=== PATIENT | female | born 1935 | race Caucasian/White ===

== ENCOUNTER 2017-07-14 01:36 | Inpatient (IN) | payer OTHER, MEDICARE ==
[~2017-07-14] VITALS: Ht 167.6 cm; Wt 90.7 kg
[~2017-07-14 01:36] MED LIST: AMLODIPINE BESY10 M1 PO; ASPIRIN81 M4 PO; ATENOLOL100 M1 PO; ATIVAN1 M1 PO; BENAZEPRIL HCL40 MG PO; CITALOPRAM HBR40 MG PO; COUMADIN5 M2 PO; DOCUSATE SODIU100 M3 PO; FOLIC ACID0.8 M2 PO; K-TAB ER20 MEQ PO; LEVOTHYROXINE25 MCG PO; LOVASTATIN10 M1 PO; MAGNESIUM250 M2 PO; MIRALAX119 GM PO; OMEPRAZOLE20 M2 PO; PERCOCET 5-3251 EACH PO; TRAMADOL HCL50 M1 PO; VITAMIN B-12250 MCG PO; VITAMIN C500 M6 PO; VITAMIN D3400 UNI1 PO
--- NOTE | 2017-07-14 10:30 | Admission Core Measures ---
Acute Coronary Syndrome (CM) ACS Core Measures Acute Coronary Syndrome Diagnosis No Congestive Heart Failure (NEW) CHF Core Measures Congestive Heart Failure Diagnosis No Cerebrovascular Accident (NEW) CVA Core Measures CVA/TIA Diagnosis No Venous Thromboembolism VTE Core Sudhakar (View Protocol) VTE Risk Factors Surgery No Mechanical VTE Prophylaxis d/t N/A MechProphylax Ordered No VTE Pharm Prophylaxis d/t NA PharmProphylax ordered Problem List As ranked by this Provider includes Assessment & Plan 1. Unilateral primary osteoarthritis, left knee HOME MEDS Home Med List Amlodipine Besylate 10 MG TABLET 1 TAB PO DAILY HEART (Reported) Ascorbate Calcium (Vitamin C) 500 MG TABLET 1 TAB PO DAILY SUPPLEMENT ( Reported) Aspirin (Aspirin*) 81 MG TAB.CHEW 1 TAB PO DAILY HEART HEALTH (Reported) Atenolol 100 MG TABLET 1 TAB PO DAILY HEART (Reported) Benazepril HCl 40 MG TABLET 1 TAB PO DAILY HEART (Reported) Cholecalciferol (Vitamin D3) (Vitamin D3) 400 UNIT TABLET 1 TAB PO DAILY SUPPLEMENT (Reported) Citalopram Hydrobromide (Citalopram HBr) 40 MG TABLET 1 TAB PO DAILY MENTAL HEALTH (Reported) Cyanocobalamin (Vitamin B-12) (Vitamin B-12) 250 MCG TABLET 1 TAB PO DAILY SUPPLEMENT (Reported) Docusate Sodium 100 MG CAPSULE 100 MG PO BID constipation Folic Acid 0.8 MG TABLET 1 TAB PO DAILY SUPPLEMENT (Reported) Levothyroxine Sodium 25 MCG TABLET 1 TAB PO DAILY AC THYROID (Reported) LORazepam (Ativan) 1 MG TABLET 1 TAB PO BID ANXIETY (Reported) Lovastatin 10 MG TABLET 1 TAB PO DAILY CHOLESTEROL (Reported) Magnesium Oxide (Magnesium) 250 MG TABLET 1 TAB PO DAILY SUPPLEMENT (Reported ) Omeprazole 20 MG CAPSULE.DR 1 CAP PO DAILY GI (Reported) Oxycodone HCl/Acetaminophen (Percocet 5-325 MG Tablet) 1 EACH TABLET 1-2 TAB PO Q4P PRN PAIN Polyethylene Glycol 3350 (Miralax) 119 GM POWDER 17 GM PO DAILY CONSTIPATION Potassium Chloride (K-Tab ER) 20 MEQ TABLET.ER 1 TAB PO DAILY SUPPLEMENT ( Reported)
--- NOTE | 2017-07-14 10:40 | Patient Discharge Instructions ---
Discharge Instructions General Discharge Information You were seen/treated for: Left knee pain related to unilateral primary osteoarthritis You had these procedures: Left total knee replacement Watch for these problems: Increasing pain despite the use of pain medications. Increasing redness, warmth, and swelling. Drainage of any type from incision. Inability to bear weight on left leg. Persistent nausea or vomitting. Inability to urinate or move bowels. Fever greater than 101.5 Call Surgeon to remove: [place] Do not soak the wound: Yes No bath, but you may shower: Yes Other wound care: Keep wound clean and dry. No ointments or lotions on or near incision at any time. No exceptions. Diet Continue normal diet: Yes Recommended Diet: Regular Activity Full Activity/No Limits: No Activity Self Limited: Yes Activity Limited to: Weight bear as tolerated Other activity limits: rolling walker assistance Acute Coronary Syndrome Inclusion Criteria At DC or during hospital stay patient has or had the following: ACS DIAGNOSIS No Discharge Core Measures Meds if any: Prescribed or Continued at Discharge Meds if any: NOT Prescribed or Continued at Discharge Congestive Heart Failure Inclusion Criteria At DC or during hospital stay patient has or had the following: CHF DIAGNOSIS No Discharge Core Measures Meds if any: Prescribed or Continued at Discharge Meds if any: NOT Prescribed or Continued at Discharge Cerebrovascular accident Inclusion Criteria At DC or during hospital stay patient has or had the following: CVA/TIA Diagnosis No Discharge Core Measures Meds if any: Prescribed or Continued at Discharge Meds if any: NOT Prescribed or Continued at Discharge Venous thromboembolism Inclusion Criteria VTE Diagnosis No VTE Type NONE VTE Confirmed by (Test) NONE Discharge Core Measures - Per Current guidelines, there needs to be overlap - treatment for the first 5 days of Warfarin therapy. - If discharged on Warfarin prior to 5 days of - overlap therapy, the patient will need to be - assessed for post discharge needs including - *Post discharge parental anticoagulation - *Warfarin and/or parental anticoagulation education - *Follow up date to check INR post discharge At least 5 days overlap therapy as Inpatient No Meds if any: Prescribed or Continued at Discharge Note: Overlap Therapy is Warfarin and Anticoagulant Meds if any: NOT Prescribed or Continued at Discharge
--- NOTE | 2017-07-14 10:47 | Surgical Discharge Summary ---
Visit Information Visit Dates Admission Date: 07/14/17 Discharge Date: 07/19/17 History of Present Illness Chief Complaint: Left knee pain related to unilateral primary osteoarthritis Medical History Neurological: TIA EENT: cataracts Cardiovascular: hypertension Respiratory: NONE Gastrointestinal: GERD Hepatic: NONE Renal: NONE Musculoskeletal: NONE Psychiatric: NONE Endocrine: hypothyroidism Blood Disorders: NONE Cancer(s): NONE CREATIVE PROJECT MANAGER/Reproductive: miscarriage History of MRSA: No History of VRE: No History of CDIFF: No Surgical History Pertinent Surgical History: D&C Psychosocial History What is Your Primary Language? [place] Review of Systems: See H&P Hospital Course Course Attending Physician: Ham Marshall MD Primary Care Physician: Yoselyn STEPHENS,[facility] Course: Suzanne was admitted to the hospital for an elective left total knee replacement. She tolerated the procedure well and was transferred to a general surgical floor. Postoperatively she remained confused, until her narcotics were discontinued. She also had a witnessed fall while getting up to the bathoom with a sitte. She reportedly lost her balance while throwing away something in the trash and slowly fell to the ground on her buttock. X-rays were obtained, which were negative for any fractures or dislocations. By the time of her hospital discharge, her diet was advanced and tolerated. Her vital signs were stable and within normal limits. Her pain was controlled with oral pain medications. She voided spontaneously. She remained neurovascularly intact. She was evaluated and treated by physical therapy and was deemed appropriate for discharge to short term rehab. Remainder of hospital course was uneventful. Complications: None Allergies: Coded Allergies: hydrocodone (unknown 07/01/17) morphine (hallucinations 07/01/17) nut - unspecified (UNKNOWN 02/18/16) Disposition Summary Disposition Principal Diagnosis: Left knee unilateral primary osteoarthritis Additional Diagnosis: same as above, s/p left total knee replacement Discharge Disposition: SNF Discharge Instructions General Discharge Information Code Status: Full Code Patient's Diet: Regular, advance as tolerated Patient's Activity: WBAT, rolling walker assistance Follow-Up Instructions/Appts: 6 week follow up with will need vonda removed around post-op day#14 Medications at Discharge Discharge Medications: Stop taking the following medications: Aspirin (Aspirin*) 81 MG TAB.CHEW ORAL DAILY Docusate Sodium (Docusate Sodium) 100 MG CAPSULE ORAL TWICE DAILY Qty = 30 Polyethylene Glycol 3350 (Miralax) 119 GM POWDER ORAL DAILY Qty = 10 Continue taking these medications: Benazepril HCl (Benazepril HCl) 40 MG TABLET 1 Tablet ORAL DAILY Comments: LISINOPRIL ADMINISTERED Last Taken: 07/19/17 Time: 9AM Potassium Chloride (K-Tab ER) 20 MEQ TABLET.ER 1 Tablet ORAL DAILY Comments: Last Taken: 07/19/17 Time: 9AM Atenolol (Atenolol) 100 MG TABLET 1 Tablet ORAL DAILY Comments: Last Taken: 07/19/17 Time: 9AM Omeprazole (Omeprazole) 20 MG CAPSULE.DR 1 Capsule ORAL DAILY Comments: Last Taken: 07/19/17 Time: 7AM Amlodipine Besylate (Amlodipine Besylate) 10 MG TABLET 1 Tablet ORAL DAILY Comments: Last Taken: 07/19/17 Time: 9AM Levothyroxine Sodium (Levothyroxine Sodium) 25 MCG TABLET 1 Tablet ORAL DAILY BEFORE BREAKFAST Comments: Last Taken: 07/19/17 Time: 7AM Citalopram Hydrobromide (Citalopram HBr) 40 MG TABLET 1 Tablet ORAL DAILY Comments: Last Taken: 07/19/17 Time: 9AM LORazepam (Ativan) 1 MG TABLET 1 Tablet ORAL TWICE DAILY Comments: 0.5MG ADMINISTERED Last Taken:07/19/17 Time: 9AM Lovastatin (Lovastatin) 10 MG TABLET 1 Tablet ORAL DAILY Comments: Last Taken: 07/19/17 Time: 5PM Ascorbate Calcium (Vitamin C) 500 MG TABLET 1 Tablet ORAL DAILY Comments: DID NOT ADMINISTER Folic Acid (Folic Acid) 0.8 MG TABLET 1 Tablet ORAL DAILY Comments: DID NOT ADMINISTER Cholecalciferol (Vitamin D3) (Vitamin D3) 400 UNIT TABLET 1 Tablet ORAL DAILY Comments: NOT GIVEN Cyanocobalamin (Vitamin B-12) (Vitamin B-12) 250 MCG TABLET 1 Tablet ORAL DAILY Comments: DID NOT ADMINISTER Magnesium Oxide (Magnesium) 250 MG TABLET 1 Tablet ORAL DAILY Comments: DID NOT ADMINISTER Start taking the following new medications: Apixaban (Eliquis) 2.5 MG TABLET 2.5 Milligram ORAL TWICE DAILY Days = 42 No Refills Instructions: x6 WEEKS POSTOP Comments: Last Taken: 07/19/17 Time: 9AM Celecoxib (Celebrex) 200 MG CAPSULE 400 Milligram ORAL DAILY Days = 10 No Refills Comments: Last Taken: 07/19/17 Time: 9AM Docusate Sodium (Docusate Sodium) 100 MG CAPSULE 100 Milligram ORAL TWICE DAILY Days = 20 No Refills Comments: Last Taken: 07/19/17 Time: 9AM Polyethylene Glycol 3350 (Miralax) 17 GRAM/DOSE POWDER 17 Gram ORAL DAILY Days = 7 No Refills Comments: DID NOT ADMINISTER Acetaminophen (Tylenol Extra Strength) 500 MG TABLET 1 Tablet ORAL EVERY 4-6 HOURS NEEDED as needed for pain control Days = 10 No Refills Comments: Last Taken: 07/19/17 Time: 2AM Tramadol HCl (Ultram) 50 MG TABLET 1 Tablet ORAL Every 6-8 Hours as Needed as needed for pain control Qty = 30 No Refills Comments: Last Taken: 07/17/17 Time: 4PM Copies To: oYselyn STEPHENS,Lauryn
--- NOTE | 2017-07-14 11:48 | Operative Report ---
Operative/Inv Procedure Report Surgery Date: 07/14/17 Name of Procedure: Left total knee arthroplasty using Shelley triathlon system Pre-Operative Diagnosis: Severe degenerative joint disease left knee Post-Operative Diagnosis: Severe degenerative joint disease left knee severe degenerative joint disease left knee Estimated Blood Loss: 50ml to 100ml Surgeon/Slot Supervisor: Joanna STEPHENS,ERICK Serrano Anesthesia: block Implants: Striker triathlon system #3 femoral posterior stabilized component, #4 tibial baseplate, 19 mm polyethylene insert, 31 mm patellar component Specimens: Bone specimen sent to the pathology Tourniquet: Tourniquet time was 87 minutes Complications: None Condition: Stable returned to the recovery room Operative Indication: This is an 81-year-old lady who has had severe degenerative joint disease of both knees. She had a successful right total knee arthroplasty performed in 2015. Despite medication and conservative treatment including injections her knee pain has not responded and she is now admitted for left total knee arthroplasty Operative/Procedure Note Note: The patient received IV vancomycin in the preoperative area. She was then taken to the operating room and a spinal anesthetic was administered. A second pair of skilled hands was required for the successful outcome of this procedure Mr. Joey Russell, a certified physician's commercial lines account assistant was necessary for retraction, coagulation and positioning of the components. His presence was required for the successful completion of this operation. The patient reached she received a dose of transamic acid, the left lower extremity was then prepped and draped in usual sterile fashion. A legholder was used throughout the procedure and a tourniquet was inflated above the left thigh to a pressure of 350 mmHg. Prior to this the left lower extremity was exsanguinated with a sterile Esmarch. A midline incision was made and taken down through subcutaneous cutaneous tissue. Small bleeders are cauterized with the Bovie. A medial parapatellar incision was made and the patella was easily dislocated laterally. Osteophytes were removed from the femur tibia and patella. A partial medial release was performed medial and lateral meniscectomies were performed. The anterior cruciate ligament was excised. A drill hole was then made just anterior to the attachment of the anterior cruciate ligament and the long femoral guide felicia was inserted into the medullary canal. The distal femoral cutting jig was assembled and the distal femoral cut was made without difficulty. The cut surfaces were then sized to a #3 femoral template. Anterior posterior and chamfer cuts were then made. A midline jig was used to osteotomize the midportion of the distal femur to accept the posterior stabilized component. Attention was then turned to the tibial surface. A drill hole was made at the footprint of the anterior cruciate ligament and the tibial guide felicia was placed into the tibial medullary canal without difficulty. 3 mm of bone were resected from the medial side. A number for tibial baseplate afforded excellent coverage. A trial reduction was then performed using a 19 mm tibial insert patient had a full range of motion with full extension and good medial and lateral ligamentous balance. Posterior osteophytes were then removed from the distal femur using a curved osteotome. Attention was then turned to the patella. A flat osteotomy was then performed and a 31 mm patellar trial afforded excellent coverage. The patella tracked well without the need of a lateral release. The cut surface of the tibial plateau was then drilled to accept the fins of the tibial baseplate. The cut surfaces of bone were then copiously irrigated with pulsatile and antibiotic solution and dried. A #3 femoral component was cemented into place. Following this a number for tibial baseplate was cemented into place. Excess cement was removed with curettes. A 19 mm polyethylene temporary trial was then placed into the tibial baseplate and the knee was held in extension until the cement dried. While this was performed a 31 mm patellar button was cemented into place and held with a clamp until the cement had dried. After 15 minutes all cement surfaces were dried. The tibial trial insert was removed and a permanent 19 mm polyethylene insert was placed over the baseplate and locked into position. Patient had a full range of motion, full extension and good medial and lateral ligaments balance. The patella tracked well. The knee was once skin copiously irrigated. A large Hemovac drain was placed in the lateral gutter through a small stab incision. The deep tissue layers were closed with 0 Vicryl interrupted sutures. The subcutaneous tissues closed with 2-0 Vicryl and the skin was closed with surgical vonda. Blood loss was scant tourniquet time was 87 minutes. She is returned to the recovery room in excellent condition Discharge Disposition: PACU
--- NOTE | 2017-07-14 13:11 | PN- Orthopedic ---
Core Measures Venous Thromboembolism VTE Risk Factors Surgery No Mechanical VTE Prophylaxis d/t N/A MechProphylax Ordered No VTE Pharm Prophylaxis d/t NA PharmProphylax ordered
--- NOTE | 2017-07-14 13:12 | PN- Orthopedic ---
Subjective Subjective: POSTOP CHECK Patient reports postop pain, which is well controlled. Tolerating clears without any nausea/vomiting. She denies any numbness or tingling. Objective Vital Signs and I&Os Vital Signs Date Time Temp Pulse Resp B/P B/P Pulse O2 O2 Flow FiO2 Mean Ox Delivery Rate 07/14 1330 97.5 68 18 130/70 95 Room Air Physical Exam: Gen - Resting comfortably in PACU awake an alert in NAD Cardiac - S1S2 noted, RRR Lungs - CTAB Ext - LLE dressing c/d/i, ice and onQ in place, jpx1 with serosanguineous drainage, moves all extremities, soft compartment, sensory and motor intact, alp in place, no edema or calf tenderness B/L - allred in place Current Medications: Current Medications Sig/Rajesh Start time Last Medication Dose Route Stop Time Status Admin Acetaminophen 0 .STK-MED ONE 07/14 0650 DC PO Acetaminophen 650 MG ONCE 07/14 0000 NR PO 07/14 235 Celecoxib 400 MG ONCE 07/14 0000 NR PO 07/14 235 Dexamethasone 0 .STK-MED ONE 07/14 0652 DC .ROUTE Dexamethasone 10 MG ONCE 07/14 0000 NR IV 07/14 235 Gabapentin 0 .STK-MED ONE 07/14 0652 DC PO Gabapentin 300 MG ONCE 07/14 0000 NR PO 07/14 235 Oxycodone HCl 0 .STK-MED ONE 07/14 0652 DC PO Oxycodone HCl 10 MG ONCE 07/14 0000 NR PO 07/14 235 Ropivacaine 500 ML ONCE ONE 07/14 1045 AC ON-Q Ball 1 BAG INJ 07/16 0424 Scopolamine HBr 0 .STK-MED ONE 07/14 0650 DC TOP Scopolamine HBr 1 PAT ONCE 07/14 0000 NR TOP 07/14 235 Vancomycin HCl 1,500 MG ONCE 07/14 0000 NR Sodium Chloride 250 ML IV 07/14 2359 Assessment/Plan Assessment/Plan 81 F POD 0 s/p L TKR, awaiting PT eval Advance diet as tolerated Cont IVF PT eval, WBAT RYANNE to bulb suction Pain meds prn Cont OnQ pump Postop abx - vanco Home meds on board [facility] tomorrow am D/c allred in am Encourage IS Core Measures Venous Thromboembolism VTE Risk Factors Surgery No Mechanical VTE Prophylaxis d/t N/[facility] No VTE Pharm Prophylaxis d/t NA PharmProphylax ordered
[2017-07-14 13:30] VITALS: BP 130/70
[2017-07-14 15:34] VITALS: BP 140/70
[2017-07-14 17:26] VITALS: BP 150/80
[2017-07-14 19:30] VITALS: BP 144/80
[2017-07-14 21:30] VITALS: BP 140/82
[2017-07-15] VITALS (7 sets, daily range): BP systolic 120–160; BP diastolic 58–80
[2017-07-15 06:36] LABS: ABSOLUTE BASOPHIL COUNT 0 /CUMM (0.0-0.2); ABSOLUTE EOSINOPHIL COUNT 0.1 /CUMM (0.0-0.7); ABSOLUTE GRANULOCYTE CT 13.5 /CUMM (1.4-6.5); ABSOLUTE LYMPH COUNT 2.7 /CUMM (1.2-3.4); ABSOLUTE MONOCYTE COUNT 1.4 /CUMM (0.10-0.60); BASOPHIL % 0.3 % (0.0-2.0); EOSINOPHIL % 0.3 % (0-5); GRANULOCYTE % 76.4 % (42.2-75.2); HEMATOCRIT 31.3 % (37-47); MEAN CORPUSCULAR HGB 30.6 PG (27.0-31.0); MEAN CORPUSCULAR HGB CONC 33.4 G/DL (33.0-37.0); MEAN CORPUSCULAR VOLUME 91.8 FL (81.0-99.0); MEAN PLATELET VOLUME 8.6 FL (7.4-10.4); PLATELET COUNT 262 /CUMM (130-400); RBC DISTRIBUTION WIDTH 15.9 % (11.5-14.5); RED BLOOD CELL CT 3.41 /CUMM (4.20-5.40); WHITE BLOOD CELL COUNT 17.7 /CUMM (4.8-10.8)
--- NOTE | 2017-07-15 08:27 | PN- Orthopedic ---
Subjective Subjective: Patient reports postop pain which is well controlled. She denies ambulating with PT yesterday. She denies any numbness, tingling, chest pain, shortness of breath or trouble breathing. Overnight, she was lucid and was pulling out her IV, pulling at her drain and allred, requiring restraints per nursing. Objective Vital Signs and I&Os Vital Signs Date Time Temp Pulse Resp B/P B/P Pulse O2 O2 Flow FiO2 Mean Ox Delivery Rate 07/15 0820 98.1 74 20 124/58 97 07/15 0750 98.1 84 18 160/76 93 Room Air 07/15 0326 97.9 82 20 148/64 94 Room Air 07/15 0030 97.7 70 18 136/80 95 Room Air 07/14 2130 97.8 72 18 140/82 94 Room Air 07/14 1930 97.7 74 18 144/80 94 Room Air 07/14 1726 97.3 64 20 150/80 92 Room Air 07/14 1534 97.0 70 18 140/70 92 Room Air 07/14 1330 97.5 68 18 130/70 95 Room Air Intake & Output 07/15 1600 07/15 0800 07/15 0000 07/14 1600 07/14 0800 07/14 0000 Intake Total 920 1080 75 Output Total 80 360 310 Balance 840 720 -235 Intake, IV 600 600 75 Intake, Oral 320 480 Output, 80 10 10 Drainage Output, Urine 350 300 Patient 200 lb Weight Physical Exam: Gen - resting comfortably awake an alert x3 accompained by a sitter Cardiac - S1S2 noted, RRR Lungs - diminshed at bases otherwise clear Ext - LLE dressing c/d/i, onQ in place, jpx1 with 100 cc serosanguineous drainage in last 24 hours, moves all extremities, soft compartment, sensory and motor intact, alp in place, no edema or calf tenderness B/L - allred in place Current Medications: Current Medications Sig/Rajesh Start time Last Medication Dose Route Stop Time Status Admin Acetaminophen 650 MG ONCE 07/14 0000 DC PO 07/14 2359 Amlodipine Besylate 10 MG DAILY 07/14 1000 AC PO Apixaban 2.5 MG BID 07/15 2200 AC PO Atenolol 100 MG DAILY 07/15 1000 AC PO Atorvastatin Calcium 10 MG 1700 07/15 1700 AC PO Celecoxib 400 MG DAILY 07/15 1000 AC PO Celecoxib 400 MG ONCE 07/14 0000 DC PO 07/14 2359 Citalopram 40 MG DAILY 07/15 1000 AC Hydrobromide PO Dexamethasone 10 MG ONCE 07/14 0000 DC IV 07/14 2359 Dextrose/Lactated 1,000 ML Q13H 07/14 1400 DC 07/15 Ringer's IV 0545 Docusate Sodium 100 MG DAILY NEEDED PRN 07/14 1400 AC PO Gabapentin 300 MG ONCE 07/14 0000 DC PO 07/14 235 Levothyroxine Sodium 0.025 MG DAILY AC 07/15 0700 AC 07/15 PO 0545 Lisinopril 10 MG DAILY 07/15 1000 AC PO Lorazepam 1 MG BID 07/14 1000 AC 07/14 PO 2054 Meperidine HCl 50 MG Q3P PRN 07/14 1400 AC IM Omeprazole 20 MG DAILY 07/14 1000 AC 07/14 PO 1634 Ondansetron HCl 4 MG Q6P PRN 07/14 1400 AC IV Oxycodone HCl 10 MG ONCE 07/14 0000 DC PO 07/14 2359 Oxycodone/ 1 TAB Q4P PRN 07/14 1400 AC 07/14 Acetaminophen PO 1418 Oxycodone/ 2 TAB Q4P PRN 07/14 1400 AC 07/15 Acetaminophen PO 0424 Polyethylene Glycol 17 GM DAILY NEEDED PRN 07/14 1400 AC PO Potassium Chloride 10 MEQ DAILY 07/15 1000 AC PO Ropivacaine 500 ML ONCE ONE 07/14 1045 AC ON-Q Ball 1 BAG INJ 07/16 0424 Scopolamine HBr 1 PAT ONCE 07/14 0000 DC TOP 07/14 2359 Senna/Docusate Sodium 2 TAB AT BEDTIME NEED.. 07/14 1400 AC PO Vancomycin HCl 1,500 MG ONCE ONE 07/14 1900 DC 07/14 Dextrose/Water 250 ML IV 07/14 2028 1846 Vancomycin HCl 1,500 MG ONCE 07/14 0000 DC Sodium Chloride 250 ML IV 07/14 235 Results Last 48 Hours of Labs: Laboratory Tests 07/15 07/15 0605 0600 Chemistry Sodium (137 - 145 mmol/L) 133 L Cancelled Potassium (3.5 - 5.1 mmol/L) 4.1 Cancelled Chloride (98 - 107 mmol/L) 95 L Cancelled Carbon Dioxide (22 - 30 mmol/L) 27 Cancelled Anion Gap (5 - 16) 11 Cancelled BUN (7 - 17 mg/dL) 15 Cancelled Creatinine (0.5 - 1.0 mg/dL) 0.8 Cancelled Estimated GFR (>60 ml/min) > 60 BUN/Creatinine Ratio (7 - 25 %) 18.8 Cancelled Phosphorus (2.5 - 4.5 mg/dL) 3.5 Magnesium (1.6 - 2.3 mg/dL) 1.8 Troponin I (< 0.11 ng/ml) < 0.01 Hematology CBC w Diff NO MAN DIFF REQ Cancelled WBC (4.8 - 10.8 /CUMM) 17.7 H Cancelled RBC (4.20 - 5.40 /CUMM) 3.41 L Cancelled Hgb (12.0 - 16.0 G/DL) 10.4 L Cancelled Hct (37 - 47 %) 31.3 L Cancelled MCV (81.0 - 99.0 FL) 91.8 Cancelled MCH (27.0 - 31.0 PG) 30.6 Cancelled MCHC (33.0 - 37.0 G/DL) 33.4 Cancelled RDW (11.5 - 14.5 %) 15.9 H Cancelled Plt Count (130 - 400 /CUMM) 262 Cancelled MPV (7.4 - 10.4 FL) 8.6 Cancelled Gran % (42.2 - 75.2 %) 76.4 H Lymphocytes % (20.5 - 51.1 %) 15.0 L Monocytes % (1.7 - 9.3 %) 8.0 Eosinophils % (0 - 5 %) 0.3 Basophils % (0.0 - 2.0 %) 0.3 Absolute Granulocytes (1.4 - 6.5 /CUMM) 13.5 H Absolute Lymphocytes (1.2 - 3.4 /CUMM) 2.7 Absolute Monocytes (0.10 - 0.60 /CUMM) 1.4 H Absolute Eosinophils (0.0 - 0.7 /CUMM) 0.1 Absolute Basophils (0.0 - 0.2 /CUMM) 0 Assessment/Plan Assessment/Plan 81 F POD 1 s/p L TKR with confusion overnight, requiring restraints PT eval, WBAT Reg diet D/c IVF RYANNE to bulb suction - possbile d/c later today Pain meds prn Cont OnQ pump Home meds on board Eliquis bid D/c brigida D/c restraints Order sitter for confusion, high fall risk Encourage IS F/u labs Will d/w Dr. Marshall Core Measures Venous Thromboembolism VTE Risk Factors Surgery No Mechanical VTE Prophylaxis d/t N/A MechProphylax Ordered No VTE Pharm Prophylaxis d/t NA PharmProphylax ordered
--- NOTE | 2017-07-15 12:38 | PN- Orthopedic ---
Surgical Brief Attending Note Brief Attending Note: Mrs. Parham is 24 hours status post left total knee arthroplasty. He was comfortable and her vital signs are stable however she is confused. Apparently pulled out her IV and Preciado last evening. She needed restraint but now she has a monitor at the bedside. She has not had physical therapy to date. Her dressing is dry and her neurovascular status is intact. Her potassium today is 4.1 her hemoglobin is 10.4 and hematocrit is 31.3. She has an elevated white count to 17,000 which is not abnormal the day following surgery. Her CBC should be repeated tomorrow. We'll start Eliquis 2.5 mg twice a day starting this evening this will continue for 4 weeks. She should be able to be transferred to [facility] for [facility] rehabilitation Tuesday. I will see her back in the office in 4 weeks barring any problems
[2017-07-16 06:28] VITALS: BP 126/60
[2017-07-16] MEDS ORDERED: CELEBREX200 M1 PO (07:06)
[2017-07-16] MEDS ORDERED: ELIQUIS2.5 M1 PO (07:06)
[2017-07-16] MEDS ORDERED: DOCUSATE SODIU100 M3 PO (07:07)
[2017-07-16] MEDS ORDERED: PERCOCET 5-3251 EACH PO (07:07)
[2017-07-16] MEDS ORDERED: MIRALAX119 GM PO (07:07)
--- NOTE | 2017-07-16 09:01 | PN- Orthopedic ---
Subjective Subjective: feeling ok, does not feel confused. no pain, no oob yet due to confusion yesterday. awaiting pt eval today. kiara reg diet, denies n/v. no cp/sob Objective Vital Signs and I&Os Vital Signs Date Time Temp Pulse Resp B/P B/P Pulse O2 O2 Flow FiO2 Mean Ox Delivery Rate 07/16 0628 97.9 76 20 126/60 95 Room Air 07/15 2226 98.6 73 20 122/60 94 07/15 1422 98.6 68 20 120/80 90 Room Air 07/15 1406 Room Air 07/15 1124 74 132/60 07/15 1041 80 132/60 07/15 1041 82 132/60 07/15 1001 98.6 82 14 132/60 96 Intake & Output 07/16 1600 07/16 0800 07/16 0000 07/15 1600 07/15 0800 07/15 0000 Intake Total 200 480 124 590 1372 Output Total 550 250 300 80 360 Balance -350 230 575 840 720 Intake, IV 75 600 600 Intake, Oral 200 480 800 320 480 Number Bowel Movements Output, 80 10 Drainage Output, Urine 550 250 300 350 Physical Exam: gen- nad. alert, awake, orientated to person, place, time card- s1s2 rrr pulm- ctab abd- soft nt ext- LLE dressing dc'ed, incision cdi. redressed. +pedal pulses, gross sensate intact, +dorsi/plantar flexion. calves soft nt bl. Current Medications: Current Medications Sig/Rajesh Start time Last Medication Dose Route Stop Time Status Admin Acetaminophen 1,000 MG Q6P PRN 07/16 0700 AC N/A 1 UNIT IV Amlodipine Besylate 10 MG DAILY 07/14 1000 AC 07/15 PO 1041 Apixaban 2.5 MG BID 07/15 2200 AC 07/15 PO 2136 Atenolol 100 MG DAILY 07/15 1000 AC 07/15 PO 1041 Atorvastatin Calcium 10 MG 1700 07/15 1700 AC 07/15 PO 1705 Bisacodyl 10 MG ONCE ONE 07/16 0700 DC TN 07/16 0701 Celecoxib 400 MG DAILY 07/15 1000 AC 07/15 PO 1041 Citalopram 40 MG DAILY 07/15 1000 AC 07/15 Hydrobromide PO 1040 Docusate Sodium 100 MG BID 07/15 2200 AC 07/15 PO 2136 Docusate Sodium 100 MG DAILY NEEDED PRN 07/14 1400 DC 07/15 PO 1041 Levothyroxine Sodium 0.025 MG DAILY AC 07/15 0700 AC 07/16 PO 0601 Lisinopril 10 MG DAILY 07/15 1000 AC 07/15 PO 1124 Lorazepam 0.5 MG Q8P PRN 07/16 0700 AC PO Lorazepam 1 MG BID 07/14 1000 DC 07/15 PO 2136 Meperidine HCl 50 MG Q3P PRN 07/14 1400 DC IM Omeprazole 20 MG DAILY 07/14 1000 AC 07/15 PO 1041 Ondansetron HCl 4 MG Q6P PRN 07/14 1400 AC IV Oxycodone HCl 5 MG Q4 HRS NEEDED PRN 07/16 0700 AC PO Oxycodone/ 1 TAB Q4P PRN 07/14 1400 DC 07/14 Acetaminophen PO 1418 Oxycodone/ 2 TAB Q4P PRN 07/14 1400 DC 07/16 Acetaminophen PO 0230 Patient Medication 1 ED ONE ONE 07/15 1545 DC 07/15 Teaching ED 07/15 1546 1707 Polyethylene Glycol 17 GM DAILY PRN 07/16 1000 AC PO Polyethylene Glycol 17 GM DAILY NEEDED PRN 07/14 1400 DC 07/15 PO 1039 Potassium Chloride 10 MEQ DAILY 07/15 1000 AC 07/15 PO 1040 Ropivacaine 500 ML ONCE ONE 07/14 1045 DC ON-Q Ball 1 BAG INJ 07/16 0424 Senna/Docusate Sodium 2 TAB AT BEDTIME NEED.. 07/14 1400 AC PO Results Last 48 Hours of Labs: Laboratory Tests 07/15 07/15 0605 0600 Chemistry Sodium (137 - 145 mmol/L) 133 L Cancelled Potassium (3.5 - 5.1 mmol/L) 4.1 Cancelled Chloride (98 - 107 mmol/L) 95 L Cancelled Carbon Dioxide (22 - 30 mmol/L) 27 Cancelled Anion Gap (5 - 16) 11 Cancelled BUN (7 - 17 mg/dL) 15 Cancelled Creatinine (0.5 - 1.0 mg/dL) 0.8 Cancelled Estimated GFR (>60 ml/min) > 60 BUN/Creatinine Ratio (7 - 25 %) 18.8 Cancelled Phosphorus (2.5 - 4.5 mg/dL) 3.5 Magnesium (1.6 - 2.3 mg/dL) 1.8 Troponin I (< 0.11 ng/ml) < 0.01 Hematology CBC w Diff NO MAN DIFF REQ Cancelled WBC (4.8 - 10.8 /CUMM) 17.7 H Cancelled RBC (4.20 - 5.40 /CUMM) 3.41 L Cancelled Hgb (12.0 - 16.0 G/DL) 10.4 L Cancelled Hct (37 - 47 %) 31.3 L Cancelled MCV (81.0 - 99.0 FL) 91.8 Cancelled MCH (27.0 - 31.0 PG) 30.6 Cancelled MCHC (33.0 - 37.0 G/DL) 33.4 Cancelled RDW (11.5 - 14.5 %) 15.9 H Cancelled Plt Count (130 - 400 /CUMM) 262 Cancelled MPV (7.4 - 10.4 FL) 8.6 Cancelled Gran % (42.2 - 75.2 %) 76.4 H Lymphocytes % (20.5 - 51.1 %) 15.0 L Monocytes % (1.7 - 9.3 %) 8.0 Eosinophils % (0 - 5 %) 0.3 Basophils % (0.0 - 2.0 %) 0.3 Absolute Granulocytes (1.4 - 6.5 /CUMM) 13.5 H Absolute Lymphocytes (1.2 - 3.4 /CUMM) 2.7 Absolute Monocytes (0.10 - 0.60 /CUMM) 1.4 H Absolute Eosinophils (0.0 - 0.7 /CUMM) 0.1 Absolute Basophils (0.0 - 0.2 /CUMM) 0 Assessment/Plan Assessment/Plan A- POD2 sp L TKR, with confusion yesterday and overnight requiring safety monitor at bedside. Alert and orientated now. Awating PT eval today. Pain controlled. P- limit narcotics. IV tylenol and celebrex first line for pain. dc sitter. continue to monitor closely eliquis, alps ist oob, wbat, pt dc planning- str ?tomorrow will dw attending Core Measures Venous Thromboembolism VTE Risk Factors Surgery No Mechanical VTE Prophylaxis d/t N/A MechProphylax Ordered No VTE Pharm Prophylaxis d/t NA PharmProphylax ordered
[2017-07-16 13:43] VITALS: BP 124/80
--- NOTE | 2017-07-16 14:16 | RADIOLOGY REPORT ---
EXAMINATION: XR KNEE, LEFT CLINICAL INFORMATION: Status post total knee replacement. COMPARISON: None TECHNIQUE: Two views of the left knee. FINDINGS: There is generalized soft tissue swelling and subcutaneous gas with a joint effusion. Skin vonda are in place. The tibial stem and femoral components of the prosthesis are normally seated without periprosthetic lucency. No fracture or dislocation is seen. Alignment is anatomic. IMPRESSION: Expected postsurgical findings, status post total knee replacement. Normal alignment.
[2017-07-16 21:38] VITALS: BP 142/64
[2017-07-17] MEDS ORDERED: OXYCODONE HCL5 M1 PO (06:27)
[2017-07-17] MEDS ORDERED: TYLENOL EXTRA500 M2 PO (06:27)
[2017-07-17 06:50] VITALS: BP 140/78
--- NOTE | 2017-07-17 08:33 | PN- Orthopedic ---
See Addendum Subjective Subjective: Improving confusion. Sitter discontinued yesterday morning. She is getting oxycodone for pain control. Her usual dose of twice daily ativan was held yesterday due to her confusion / delirium. She is tolerating food. Decreased appetite but denies nausea/vomiting. No dizziness. No shortness of breath. No chest pains. Reported bm yesterday. Voiding without difficulty. Her PCP is . Objective Vital Signs and I&Os Vital Signs Date Time Temp Pulse Resp B/P B/P Pulse O2 O2 Flow FiO2 Mean Ox Delivery Rate 07/17 0650 97.8 80 20 140/78 94 Room Air 07/16 2138 98.7 77 20 142/64 92 Room Air 07/16 1343 98.0 76 20 124/80 92 Room Air 07/16 1034 97.9 76 20 126/60 07/16 1034 97.9 76 20 126/60 07/16 1034 97.9 76 20 126/60 Intake & Output 07/17 1600 07/17 0800 07/17 0000 07/16 1600 07/16 0800 07/16 0000 Intake Total 200 250 800 200 480 Output Total 3025 700 550 250 Balance -2825 250 100 -350 230 Intake, Oral 200 250 800 200 480 Number 1 Bowel Movements Output, Urine 3025 700 550 250 Physical Exam: General - alert. "It's June 2017". She recalls having surgery on by . Lungs - clear bilaterally. no w/r/r. Cardiac - s1s2. reg. Abdomen - soft. nontender. Extremities - warm bilaterally. dressing changed. incision approximated with vonda. no erythema or exudates. calves soft and nontender b/l. nvi. athrombic pumps in place. Current Medications: Current Medications Sig/Rajesh Start time Last Medication Dose Route Stop Time Status Admin Acetaminophen 1,000 MG Q6P PRN 07/16 0700 AC N/A 1 UNIT IV Amlodipine Besylate 10 MG DAILY 07/14 1000 AC 07/16 PO 103 Apixaban 2.5 MG BID 07/15 2200 AC 07/16 PO 2010 Atenolol 100 MG DAILY 07/15 1000 AC 07/16 PO 103 Atorvastatin Calcium 10 MG 1700 07/15 1700 AC 07/16 PO 1642 Celecoxib 400 MG DAILY 07/15 1000 AC 07/16 PO 1033 Citalopram 40 MG DAILY 07/15 1000 AC 07/16 Hydrobromide PO 1033 Docusate Sodium 100 MG .STK-MED ONE 07/16 2009 DC PO 07/16 2010 Docusate Sodium 100 MG BID 07/15 2200 AC 07/16 PO 2011 Levothyroxine Sodium 0.025 MG DAILY AC 07/15 0700 AC 07/17 PO 0610 Lisinopril 10 MG DAILY 07/15 1000 AC 07/16 PO 1034 Lorazepam 0.5 MG BID 07/17 1000 UNVr PO 07/24 0959 Lorazepam 0.5 MG ONE ONE 07/16 1900 DC 07/16 PO 07/16 1901 1854 Lorazepam 0.5 MG Q8P PRN 07/16 0700 DC PO Omeprazole 20 MG DAILY 07/14 1000 AC 07/16 PO 1034 Ondansetron HCl 4 MG Q6P PRN 07/14 1400 AC IV Oxycodone HCl 5 MG Q4 HRS NEEDED PRN 07/16 0700 AC 07/17 PO 0500 Polyethylene Glycol 17 GM DAILY PRN 07/16 1000 AC PO Potassium Chloride 10 MEQ DAILY 07/15 1000 AC 07/16 PO 1034 Senna/Docusate Sodium 2 TAB AT BEDTIME NEED.. 07/14 1400 AC PO Assessment/Plan Assessment/Plan This 81 year old female with hx htn, hld, hypothyroidism, depression/anxiety, gerd, is POD#3 s/p L TKR, with post-op delirium that is improving daily tolerating regular diet ativan held, but will try to restart at half her baseline dose (0.5 mg instead of 1 mg bid) continue pain medication as needed. limiting narcotics as able continue PT dressing changed spoke with her daughter Jeni on the phone regarding her post-op course and improving delirium, who reports this has happened in her past after another surgery will reach out to her PCP, Dr.Sudipta Topete, to discuss and for consult likely d/c to STR today will d/w Core Measures Venous Thromboembolism VTE Risk Factors Surgery No Mechanical VTE Prophylaxis d/t N/A MechProphylax Ordered No VTE Pharm Prophylaxis d/t NA PharmProphylax ordered
[2017-07-17 09:57] LABS: ABSOLUTE BASOPHIL COUNT 0 /CUMM (0.0-0.2); ABSOLUTE EOSINOPHIL COUNT 0.1 /CUMM (0.0-0.7); ABSOLUTE GRANULOCYTE CT 9.1 /CUMM (1.4-6.5); ABSOLUTE LYMPH COUNT 2.2 /CUMM (1.2-3.4); ABSOLUTE MONOCYTE COUNT 0.9 /CUMM (0.10-0.60); BASOPHIL % 0.2 % (0.0-2.0); EOSINOPHIL % 1.2 % (0-5); GRANULOCYTE % 73.3 % (42.2-75.2); MEAN CORPUSCULAR HGB 30.7 PG (27.0-31.0); MEAN CORPUSCULAR HGB CONC 33.8 G/DL (33.0-37.0); MEAN CORPUSCULAR VOLUME 90.8 FL (81.0-99.0); MEAN PLATELET VOLUME 8.6 FL (7.4-10.4); PLATELET COUNT 252 /CUMM (130-400); RBC DISTRIBUTION WIDTH 15.6 % (11.5-14.5); RED BLOOD CELL CT 3.09 /CUMM (4.20-5.40); WHITE BLOOD CELL COUNT 12.4 /CUMM (4.8-10.8)
[2017-07-17 13:47] VITALS: BP 124/60
[2017-07-17] MEDS ORDERED: ULTRAM50 M1 PO (14:44)
[2017-07-17 16:15] VITALS: BP 150/80
--- NOTE | 2017-07-17 16:50 | Event Note ---
Event Note Event Note: rapid response called due to patient fall. she got up to the bathroom with the sitter, and reportedly loss her balance while throwing away something in trash. she slowly fell to the ground on her bottom, witnessed by the sitter who was with her. she was assessed by the rapid response team, and assissted back to bed. she did not hit her head. she reports some left buttock pain. vitals stable, bp 150/80, hr 77, 93% on room air, temp 98.5, blood sugar 108 general - alert & oriented x 3. comfortable in bed. no acute distress. head - ncat lungs - clear bilaterally. no w/r/r. cardiac - s1s2. reg. abdomen - soft. nontender extremities - left knee dressing c/d/i. nvi. no deformities, abrasions, swelling , or lacerations appreciated. nvi. neuro - full exam witnessed by medical dosimetrist, without any acute focal deficit. the patient has likely ongoing post-operative delirium, which is slowly improving every day, now POD#3 s/p left totla knee replacement several calls made to her PCP 's office today, with no call backs her ativan is currently at 0.5 mg BID (half her usual twice daily dose) oxycodone has been discontinued. will try ultram / tylenol as needed will check xrays of her left hip & left knee to r/o fx / dislocation contacted her daughter Jeni regarding this event continue sitter at this time for safety will call hospitalist for co-management, given her confusion seems to be her primary problem at this time aware & notified
--- NOTE | 2017-07-17 17:54 | RADIOLOGY REPORT ---
EXAMINATION: XR HIP, LEFT XR KNEE, LEFT CLINICAL INFORMATION: Postoperative from left total knee replacement and fall. Evaluate for fracture. COMPARISON: Radiographs of the knee from 07/16/2017 TECHNIQUE: Left hip, 2 views Left knee, 4 views FINDINGS: Left hip: The visualized pelvic bones are intact. The femoral head is well-positioned within the intact acetabulum. The femoroacetabular joint space is normal. No evidence of femoral fracture or subluxation. Incidentally noted is degenerative subarticular sclerosis along the iliac margin of the left sacroiliac joint, inferiorly, and vacuum disc degenerative change at L5-S1. Left knee: The components of the total knee arthroplasty demonstrate satisfactory positioning and alignment. No acute periprosthetic fracture or hardware loosening. Anterior skin vonda in place. Postoperative soft tissue edema around the knee. IMPRESSION: 1. No acute findings at the left hip. 2. No acute fracture or malalignment at the left knee.
[2017-07-17 22:03] VITALS: BP 134/60
[2017-07-18 06:38] VITALS: BP 142/76
--- NOTE | 2017-07-18 07:31 | PN- Orthopedic ---
Subjective Subjective: feeling ok, no pain. doesnt feel confused now, but admits to feeling confused at times during hospital stay. RR called yesterday pm for witnessed slip and fall in bathroom, xrays negative. no cp/sob/n/v, kiara diet, +voids, +bm Objective Vital Signs and I&Os Vital Signs Date Time Temp Pulse Resp B/P B/P Pulse O2 O2 Flow FiO2 Mean Ox Delivery Rate 07/18 0638 98.3 78 20 142/76 93 Room Air 07/17 2203 99.2 73 20 134/60 94 Room Air 07/17 1615 98.5 77 18 150/80 07/17 1347 98.4 73 18 124/60 95 Room Air 07/17 0840 97.8 80 20 140/78 07/17 0840 97.8 80 20 140/78 07/17 0840 97.8 80 20 140/78 Intake & Output 07/18 0800 07/18 0000 07/17 1600 07/17 0800 07/17 0000 07/16 1600 Intake Total 400 800 200 250 800 Output Total 824 551 6007 700 Balance -150 200 -2825 250 100 Intake, Oral 400 800 200 250 800 Number 1 Bowel Movements Output, Urine 489 296 1698 700 Physical Exam: gen- nad, a&ox3 card- s1s2 rrr pulm- ctab abd- soft nt ext- calves soft nt, palp pedal pulses, some edema lle, incision dressed- no erythema, no drainage. +dorsi/plantar flexion, gross sensation intact Current Medications: Current Medications Sig/Rajesh Start time Last Medication Dose Route Stop Time Status Admin Acetaminophen 500 MG Q4-6 PRN PRN 07/17 1115 AC 07/17 PO 2124 Acetaminophen 1,000 MG Q6P PRN 07/16 0700 DC N/A 1 UNIT IV Amlodipine Besylate 10 MG DAILY 07/14 1000 AC 07/17 PO 0840 Apixaban 2.5 MG BID 07/15 2200 AC 07/17 PO 212 Atenolol 100 MG DAILY 07/15 1000 AC 07/17 PO 0840 Atorvastatin Calcium 10 MG 1700 07/15 1700 AC 07/17 PO 1642 Celecoxib 400 MG DAILY 07/15 1000 AC 07/17 PO 0839 Citalopram 40 MG DAILY 07/15 1000 AC 07/17 Hydrobromide PO 0839 Docusate Sodium 100 MG BID 07/15 2200 AC 07/17 PO 2125 Levothyroxine Sodium 0.025 MG DAILY AC 07/15 0700 AC 07/18 PO 0634 Lisinopril 10 MG DAILY 07/15 1000 AC 07/17 PO 0840 Lorazepam 0.5 MG BID 07/17 1000 AC 07/17 PO 07/24 0959 2125 Omeprazole 20 MG DAILY 07/14 1000 AC 07/17 PO 0840 Ondansetron HCl 4 MG Q6P PRN 07/14 1400 AC IV Oxycodone HCl 5 MG Q4 HRS NEEDED PRN 07/16 0700 DC 07/17 PO 0500 Polyethylene Glycol 17 GM DAILY PRN 07/16 1000 AC PO Potassium Chloride 10 MEQ DAILY 07/15 1000 AC 07/17 PO 0839 Senna/Docusate Sodium 2 TAB AT BEDTIME NEED.. 07/14 1400 AC PO Tramadol HCl 50 MG Q6P PRN 07/17 1445 AC 07/17 PO 1642 Results Last 48 Hours of Labs: Laboratory Tests 07/18 07/17 07/17 0710 1935 1935 Chemistry Sodium Pending Potassium Pending Chloride Pending Carbon Dioxide Pending Anion Gap Pending BUN Pending Creatinine Pending BUN/Creatinine Ratio Pending Hematology CBC w Diff Pending WBC Pending RBC Pending Hgb Pending Hct Pending MCV Pending MCH Pending MCHC Pending RDW Pending Plt Count Pending MPV Pending Urines Urine Color (YEL,AMB,STR) YEL Urine Clarity (CLEAR) CLEAR Urine pH (5.0 - 8.0) 7.0 Ur Specific [place] (1.001 - 1.035) 1.010 Urine Protein (NEG,<30 MG/DL) TRACE H Urine Ketones (NEG) NEG Urine Nitrite (NEG) NEG Urine Bilirubin (NEG) NEG Urine Urobilinogen (0.1 - 1.0 EU/dl) 0.2 Ur Leukocyte Esterase (NEG) SMALL H Ur Microscopic SEDIMENT EXAMINED Urine RBC (0 - 5 /HPF) RARE Urine WBC (0 - 2 /HPF) 5-10 H Ur Epithelial Cells (NONE,FEW) MANY H Urine Bacteria (NEG/NONE) FEW H Urine Mucus (FEW,NONE) FEW Urine Hemoglobin (NEG) NEG Urine Osmolality (300 - 1000 MOSM/KG) 284 L Ur Random Creatinine (mg/dL) 52.7 Ur Random Sodium (30 - 90 mmol/L) 46 Ur Random Potassium (mmol/L) 24.1 Fraction Sodium Excret (<1% %) 0.4 Urine Glucose (N MG/DL) NEG 07/17 0855 Chemistry Sodium (137 - 145 mmol/L) 134 L Potassium (3.5 - 5.1 mmol/L) 3.7 Chloride (98 - 107 mmol/L) 96 L Carbon Dioxide (22 - 30 mmol/L) 24 Anion Gap (5 - 16) 13 BUN (7 - 17 mg/dL) 10 Creatinine (0.5 - 1.0 mg/dL) 0.6 Estimated GFR (>60 ml/min) > 60 BUN/Creatinine Ratio (7 - 25 %) 16.7 Glucose (65 - 99 mg/dL) 143 H Phosphorus (2.5 - 4.5 mg/dL) 3.3 Magnesium (1.6 - 2.3 mg/dL) 1.8 TSH (0.270 - 4.200 uIU/mL) 5.310 H Hematology CBC w Diff NO MAN DIFF REQ WBC (4.8 - 10.8 /CUMM) 12.4 H RBC (4.20 - 5.40 /CUMM) 3.09 L Hgb (12.0 - 16.0 G/DL) 9.5 L Hct (37 - 47 %) 28.0 L MCV (81.0 - 99.0 FL) 90.8 MCH (27.0 - 31.0 PG) 30.7 MCHC (33.0 - 37.0 G/DL) 33.8 RDW (11.5 - 14.5 %) 15.6 H Plt Count (130 - 400 /CUMM) 252 MPV (7.4 - 10.4 FL) 8.6 Gran % (42.2 - 75.2 %) 73.3 Lymphocytes % (20.5 - 51.1 %) 18.0 L Monocytes % (1.7 - 9.3 %) 7.3 Eosinophils % (0 - 5 %) 1.2 Basophils % (0.0 - 2.0 %) 0.2 Absolute Granulocytes (1.4 - 6.5 /CUMM) 9.1 H Absolute Lymphocytes (1.2 - 3.4 /CUMM) 2.2 Absolute Monocytes (0.10 - 0.60 /CUMM) 0.9 H Absolute Eosinophils (0.0 - 0.7 /CUMM) 0.1 Absolute Basophils (0.0 - 0.2 /CUMM) 0 Assessment/Plan Assessment/Plan A- 81yoF POD4 sp L TKR, with postop delirium though A&Ox3 now, orthopedically stable for STR transfer. P- nonnarcotic pain meds pt, wbat dc sitter recheck ua/cx as previous ua contaminated reg diet as tolerated will involve medical team for input re: necessary workup for confusion prior to STR transfer will dw attending Core Measures Venous Thromboembolism VTE Risk Factors Surgery No Mechanical VTE Prophylaxis d/t N/A MechProphylax Ordered No VTE Pharm Prophylaxis d/t NA PharmProphylax ordered
[2017-07-18 08:36] LABS: ABSOLUTE BASOPHIL COUNT 0 /CUMM (0.0-0.2); ABSOLUTE EOSINOPHIL COUNT 0.3 /CUMM (0.0-0.7); ABSOLUTE GRANULOCYTE CT 8.7 /CUMM (1.4-6.5); BASOPHIL % 0.2 % (0.0-2.0); EOSINOPHIL % 2.5 % (0-5); HEMATOCRIT 27.3 % (37-47); MEAN CORPUSCULAR HGB CONC 34.3 G/DL (33.0-37.0); MEAN CORPUSCULAR VOLUME 90.6 FL (81.0-99.0); MEAN PLATELET VOLUME 8.6 FL (7.4-10.4); PLATELET COUNT 291 /CUMM (130-400); RBC DISTRIBUTION WIDTH 15.2 % (11.5-14.5); RED BLOOD CELL CT 3.02 /CUMM (4.20-5.40); WHITE BLOOD CELL COUNT 12.1 /CUMM (4.8-10.8)
--- NOTE | 2017-07-18 09:38 | Cons- Medical ---
Javier Sanchez 07/18/17 0930: General Information and HPI Consulting Request Date of Consult: 07/18/17 Requested By: Joanna STEPHENS,Ham Pineda Reason for Consult: post op confusion Source of Information: patient, old records Exam Limitations: no limitations History of Present Illness: This is a 81-year-old female with past medical history significant for cataracts , TIA on statin, hypertension, hypothyroidism, anxiety, depression, GERD, bilateral knee osteoarthritis, status post total knee replacement right knee was admitted to surgical service for elective left total knee replacement on 2017. Medical team was consulted on 07/18/2017 for management of postoperative confusion. Patient underwent successful left total knee replacement on 07/14/[address] Marshall. It was an elective procedure. Patient tolerated the procedure. She was maintained on normal diet. Vitals were within normal limits. On patient was found to have postoperative confusion, couldn't sleep, she was lucid pulling out IV line, Preciado's, RYANNE drain. She was placed on restraints. Also continue safety monitoring was ordered. Her home medication Ativan 1 mg twice daily was held. On DENTAL HYGIENE TEACHER was called after patient lost her balance and fell in the restroom. Hip xry and Knee x-ray was normal. Off note she was on oxycodone and Ativan prior to the fall. She was continued on safety monitor. Restraints were discontinued. Postoperative course was complicated by fall. She was able to tolerate diet. Received adequate pain management. Foleys catheter was removed. Physical therapist on board, recommended short-term rehabilitation. Patient was initially given oxycodone for pain management. She also received Ativan for a few days. However given her postoperative confusion oxycodone and Ativan were discontinued. Review of systems negative for chest pain, short of breath, fever, chills, cough , nausea, vomiting, abdominal pain, diarrhea, frequency, urgency, dysuria. She reports on and off constipation. Denies any urinary symptoms. Off note she reports allergy to oxycodone in the past. She received oxycodone in the past, reports oversedation. She underwent right total knee replacement and she was found to have postoperative delirium for a few days in the past. She never smoked, occasional alcohol abuse, denies illicit drug abuse. Allergies/Medications Allergies: Coded Allergies: hydrocodone (unknown 07/01/17) morphine (hallucinations 07/01/17) nut - unspecified (UNKNOWN 02/18/16) Home Med List: Acetaminophen (Tylenol Extra Strength) 500 MG TABLET 1 TAB PO Q4-6 PRN PRN pain control Amlodipine Besylate 10 MG TABLET 1 TAB PO DAILY HEART (Reported) Apixaban (Eliquis) 2.5 MG TABLET 2.5 MG PO BID POSTOP ANTICOAGULATION x6 WEEKS POSTOP Ascorbate Calcium (Vitamin C) 500 MG TABLET 1 TAB PO DAILY SUPPLEMENT ( Reported) Aspirin (Aspirin*) 81 MG TAB.CHEW 1 TAB PO DAILY HEART HEALTH (Reported) Atenolol 100 MG TABLET 1 TAB PO DAILY HEART (Reported) Benazepril HCl 40 MG TABLET 1 TAB PO DAILY HEART (Reported) Celecoxib (Celebrex) 200 MG CAPSULE 400 MG PO DAILY POSTOP Cholecalciferol (Vitamin D3) (Vitamin D3) 400 UNIT TABLET 1 TAB PO DAILY SUPPLEMENT (Reported) Citalopram Hydrobromide (Citalopram HBr) 40 MG TABLET 1 TAB PO DAILY MENTAL HEALTH (Reported) Cyanocobalamin (Vitamin B-12) (Vitamin B-12) 250 MCG TABLET 1 TAB PO DAILY SUPPLEMENT (Reported) Docusate Sodium 100 MG CAPSULE 100 MG PO BID constipation Docusate Sodium 100 MG CAPSULE 100 MG PO BID constipation Folic Acid 0.8 MG TABLET 1 TAB PO DAILY SUPPLEMENT (Reported) Levothyroxine Sodium 25 MCG TABLET 1 TAB PO DAILY AC THYROID (Reported) LORazepam (Ativan) 1 MG TABLET 1 TAB PO BID ANXIETY (Reported) Lovastatin 10 MG TABLET 1 TAB PO DAILY CHOLESTEROL (Reported) Magnesium Oxide (Magnesium) 250 MG TABLET 1 TAB PO DAILY SUPPLEMENT (Reported ) Omeprazole 20 MG CAPSULE.DR 1 CAP PO DAILY GI (Reported) Polyethylene Glycol 3350 (Miralax) 17 GRAM/DOSE POWDER 17 GM PO DAILY CONSTIPATION Polyethylene Glycol 3350 (Miralax) 119 GM POWDER 17 GM PO DAILY CONSTIPATION Potassium Chloride (K-Tab ER) 20 MEQ TABLET.ER 1 TAB PO DAILY SUPPLEMENT ( Reported) Tramadol HCl (Ultram) 50 MG TABLET 1 TAB PO Q6-8P PRN pain control Current Medications: Current Medications Sig/Rajesh Start time Last Medication Dose Route Stop Time Status Admin Acetaminophen 500 MG Q4-6 PRN PRN 07/17 1115 AC 07/18 PO 0825 Acetaminophen 1,000 MG Q6P PRN 07/16 0700 DC N/A 1 UNIT IV Amlodipine Besylate 10 MG DAILY 07/14 1000 AC 07/18 PO 0756 Apixaban 2.5 MG BID 07/15 2200 AC 07/18 PO 0757 Atenolol 100 MG DAILY 07/15 1000 AC 07/18 PO 0758 Atorvastatin Calcium 10 MG 1700 07/15 1700 AC 07/17 PO 1642 Celecoxib 400 MG DAILY 07/15 1000 AC 07/18 PO 0758 Citalopram 40 MG DAILY 07/15 1000 AC 07/18 Hydrobromide PO 0755 Docusate Sodium 100 MG BID 07/15 2200 AC 07/18 PO 0755 Levothyroxine Sodium 0.025 MG DAILY AC 07/15 0700 AC 07/18 PO 0634 Lisinopril 10 MG DAILY 07/15 1000 AC 07/18 PO 0758 Lorazepam 0.5 MG BID 07/17 1000 AC 07/18 PO 07/24 0959 0801 Omeprazole 20 MG DAILY 07/14 1000 AC 07/18 PO 0757 Ondansetron HCl 4 MG Q6P PRN 07/14 1400 AC IV Oxycodone HCl 5 MG Q4 HRS NEEDED PRN 07/16 0700 DC 07/17 PO 0500 Polyethylene Glycol 17 GM DAILY PRN 07/16 1000 AC PO Potassium Chloride 10 MEQ DAILY 07/15 1000 AC 07/18 PO 0757 Senna/Docusate Sodium 2 TAB AT BEDTIME NEED.. 07/14 1400 AC PO Tramadol HCl 50 MG Q6P PRN 07/17 1445 AC 07/17 PO 1642 Review of Systems Review of Systems Constitutional: Denies: chills, diaphoresis, fever, malaise, weakness, unexplained weight loss. EENTM: Denies: blurred vision, double vision, visual changes. Cardiovascular: Denies: chest pain, edema, orthopena, palpitations, peripheral edema, syncope. Respiratory: Denies: cough, hemoptysis, orthopnea, short of breath, sputum production. GI: Reports: constipation. Denies: abdominal pain, bloating, diarrhea, distention, nausea. Genitourinary: Denies: discharge, dysuria, frequency, hematuria, nocturia. Musculoskeletal: Reports: joint pain. Denies: back pain, joint swelling, muscle pain. Past History Medical History Blood Transfusion Hx: No Neurological: TIA EENT: cataracts Cardiovascular: hypertension, hyperlipidemia Respiratory: NONE Gastrointestinal: GERD Hepatic: NONE Renal: NONE Musculoskeletal: NONE Psychiatric: anxiety, depression Endocrine: hypothyroidism Blood Disorders: NONE Cancer(s): NONE PAIN MANAGEMENT SPECIALIST/Reproductive: miscarriage Surgical History Surgical History: knee replacement, D&C Family History Relations & Conditions If Any: Relation not specified for: *No pertinent family history Psychosocial History Where Do You Live? Home Services at Home: None Smoking Status: Never Smoked ETOH Use: occasional use Illicit Drug Use: denies illicit drug use Exam & Diagnostic Data Last 24 Hrs of Vital Signs/I&O Vital Signs Date Time Temp Pulse Resp B/P B/P Pulse O2 O2 Flow FiO2 Mean Ox Delivery Rate 07/18 0758 78 142/76 07/18 0758 78 142/76 07/18 0756 78 142/76 07/18 0638 98.3 78 20 142/76 93 Room Air 07/17 2203 99.2 73 20 134/60 94 Room Air 07/17 1615 98.5 77 18 150/80 07/17 1347 98.4 73 18 124/60 95 Room Air Intake & Output 07/18 1600 07/18 0800 07/18 0000 Intake Total 500 400 Output Total 600 550 Balance -100 -150 Intake, Oral 500 400 Output, Urine 600 550 Physical Exam General Appearance: well developed/nourished, no apparent distress, alert, awake , comfortable Head: atraumatic, normal appearance Eyes: Bilateral: PERRL, EOMI. Ears, Nose, Throat: normal pharynx Neck: normal inspection, supple, full range of motion Respiratory: normal breath sounds Cardiovascular: regular rate/rhythm Gastrointestinal: normal bowel sounds, soft, non-tender Back: normal inspection, normal range of motion Extremities: normal inspection Neurologic/Psych: no motor/sensory deficits, awake, alert, oriented x 3, normal gait, normal mood/affect Cranial Nerves: normal hearing, normal speech Last 24 Hrs of Labs/Ramez: Laboratory Tests 07/18/17 0815: Urine Color Pending, Urine Clarity Pending, Urine pH Pending, Ur Specific [place] Pending, Urine Protein Pending, Urine Ketones Pending, Urine Nitrite Pending, Urine Bilirubin Pending, Urine Urobilinogen Pending, Ur Leukocyte Esterase Pending, Ur Microscopic Pending, Urine Hemoglobin Pending, Urine Glucose Pending 07/18/17 0710: Anion Gap 10, Estimated GFR > 60, BUN/Creatinine Ratio 18.3, CBC w Diff NO MAN DIFF REQ, RBC 3.02 L, MCV 90.6, MCH 31.0, MCHC 34.3, RDW 15.2 H, MPV 8.6, Gran % 72.0, Lymphocytes % 16.7 L, Monocytes % 8.6, Eosinophils % 2.5, Basophils % 0.2, Absolute Granulocytes 8.7 H, Absolute Lymphocytes 2.0, Absolute Monocytes 1.0 H, Absolute Eosinophils 0.3, Absolute Basophils 0 07/17/171934: Urine Color YEL, Urine Clarity CLEAR, Urine pH 7.0, Ur Specific [place] 1.010, Urine Protein TRACE H, Urine Ketones NEG, Urine Nitrite NEG, Urine Bilirubin NEG, Urine Urobilinogen 0.2, Ur Leukocyte Esterase SMALL H, Ur Microscopic SEDIMENT EXAMINED, Urine RBC RARE, Urine WBC 5-10 H, Ur Epithelial Cells MANY H, Urine Bacteria FEW H, Urine Mucus FEW, Urine Hemoglobin NEG, Urine Glucose NEG 07/17/171934: Urine Osmolality 284 L, Ur Random Creatinine 52.7, Ur Random Sodium 46, Ur Random Potassium 24.1, Fraction Sodium Excret 0.4 Assessment/Plan Assessment/Plan This is a 81-year-old female with past medical history significant for cataracts , TIA on statin, hypertension, hypothyroidism, anxiety, depression, GERD, bilateral knee osteoarthritis, status post total knee replacement right knee was admitted to surgical service for elective left total knee replacement on 2017. Medical team was consulted on 07/18/2017 for management of postoperative confusion. Vitals were within normal limits. Pertinent labs leukocytosis 17.7, improved to 12.1. Hemoglobin stable. Platelet count was normal. BMP normal, hyponatremia resolved. Urinalysis showed small esterase, 5-10 WBC, few bacteria. However denies any urinary symptoms. Urine culture no growth so far. Hip xry, knee x-ray with in normal limits showing postoperative changes. Assessment and plan 1. Postoperative confusion Patient was found to have confusion on postoperative day 1 after an elective left total knee replacement. She pulled her IV line, Preciado's catheter, restraints were ordered. Continue safety monitor was ordered. off note patient received oxycodone and Ativan postoperatively. Postoperative course was complicated by fall from loss of balance. Postoperative delirium Most likely from opiate induced/oxycodone usage, benzodiazepine use. Also given her sleep disturbances she might be delerious. Other most common causes for post operative delirium were ruled out. She was never dehydrated, no trauma, no infection, no fever. * She is alert, awake, oriented 3 now. * Continue safety monitor for now * Avoid medications like opiates particularly oxycodone given her delirium, benzodiazepine use. * Provide adequate hydration * Avoid sleep disturbances * Environmental modification and nonpharmacologic sleep aids. * Orientation protocol * Decrease use of restraints * No respiratory symptoms, no urinary symptoms. Infection was ruled out * Sodium improved. No Electrolyte abnormalities. * Monitor vitals every shift. Thank you for consulting medical team. Please follow attending recommendations below. Problem List: 1. Fall 2. Unilateral primary osteoarthritis, left knee 3. Status post total right knee replacement Consult Acknowledgment - Thank you for your consult request. Jennifer Maldonado MD 07/18/17 1000: Assessment/Plan Consult Acknowledgment - Thank you for your consult request. Attending Review Statement Attending Statement Attending MD Statement: examined this patient, discuss w/resident/PA/JEWISH HISTORY PROFESSOR, agreed w/resident/PA/JEWISH HISTORY PROFESSOR, reviewed EMR data (avail), discussed with nursing, reviewed images, amended to note Attending Assessment/Plan: 81-year-old female with past medical history significant for hypertension, hyperlipidemia, anxiety, depression, GERD, hypothyroidism who is admitted to orthopedic service for an elective left knee surgery which was performed on . Patient was doing fairly well but then developed some delirium. Apparently patient has been given oxycodone and she claims that she reacts back to oxycodone. She has had this episodes of confusion in the past with her previous surgeries and she was given oxycodone. Medicine team is consulted for postop delirium. She also has some leukocytosis postoperatively. So far her infection workup including checking her urinalysis and urine culture is negative. Patient is almost back to her baseline terms of her confused state. She is a oh 3. She remembers the details about her admission and surgery. She also admits that oxycodone makes her confused. Patient has been resumed back on her citalopram as well as Ativan per orthopedic. She claims that her pain is well controlled with the current regimen which now includes Tylenol, celecoxib as well as tramadol. vss. aox3, nad. cv; s1,s2, rrr resp; clear abd; soft, nt, bs+ ext; no edema. ms: + left knee vonda. Laboratory Tests 07/18 07/18 0815 0710 Chemistry Sodium (137 - 145 mmol/L) 136 L Potassium (3.5 - 5.1 mmol/L) 4.0 Chloride (98 - 107 mmol/L) 99 Carbon Dioxide (22 - 30 mmol/L) 27 Anion Gap (5 - 16) 10 BUN (7 - 17 mg/dL) 11 Creatinine (0.5 - 1.0 mg/dL) 0.6 Estimated GFR (>60 ml/min) > 60 BUN/Creatinine Ratio (7 - 25 %) 18.3 Hematology CBC w Diff NO MAN DIFF REQ WBC (4.8 - 10.8 /CUMM) 12.1 H RBC (4.20 - 5.40 /CUMM) 3.02 L Hgb (12.0 - 16.0 G/DL) 9.4 L Hct (37 - 47 %) 27.3 L MCV (81.0 - 99.0 FL) 90.6 MCH (27.0 - 31.0 PG) 31.0 MCHC (33.0 - 37.0 G/DL) 34.3 RDW (11.5 - 14.5 %) 15.2 H Plt Count (130 - 400 /CUMM) 291 MPV (7.4 - 10.4 FL) 8.6 Gran % (42.2 - 75.2 %) 72.0 Lymphocytes % (20.5 - 51.1 %) 16.7 L Monocytes % (1.7 - 9.3 %) 8.6 Eosinophils % (0 - 5 %) 2.5 Basophils % (0.0 - 2.0 %) 0.2 Absolute Granulocytes (1.4 - 6.5 /CUMM) 8.7 H Absolute Lymphocytes (1.2 - 3.4 /CUMM) 2.0 Absolute Monocytes (0.10 - 0.60 /CUMM) 1.0 H Absolute Eosinophils (0.0 - 0.7 /CUMM) 0.3 Absolute Basophils (0.0 - 0.2 /CUMM) 0 Urines Urine Color (YEL,AMB,STR) YEL Urine Clarity (CLEAR) CLEAR Urine pH (5.0 - 8.0) 7.0 Ur Specific [place] (1.001 - 1.035) 1.010 Urine Protein (NEG,<30 MG/DL) NEG Urine Ketones (NEG) NEG Urine Nitrite (NEG) NEG Urine Bilirubin (NEG) NEG Urine Urobilinogen (0.1 - 1.0 EU/dl) 0.2 Ur Leukocyte Esterase (NEG) NEG Ur Microscopic EXAM NOT REQUIRED Urine Hemoglobin (NEG) NEG Urine Glucose (N MG/DL) NEG 07/17 193 Urines Urine Color (YEL,AMB,STR) YEL Urine Clarity (CLEAR) CLEAR Urine pH (5.0 - 8.0) 7.0 Ur Specific [place] (1.001 - 1.035) 1.010 Urine Protein (NEG,<30 MG/DL) TRACE H Urine Ketones (NEG) NEG Urine Nitrite (NEG) NEG Urine Bilirubin (NEG) NEG Urine Urobilinogen (0.1 - 1.0 EU/dl) 0.2 Ur Leukocyte Esterase (NEG) SMALL H Ur Microscopic SEDIMENT EXAMINED Urine RBC (0 - 5 /HPF) RARE Urine WBC (0 - 2 /HPF) 5-10 H Ur Epithelial Cells (NONE,FEW) MANY H Urine Bacteria (NEG/NONE) FEW H Urine Mucus (FEW,NONE) FEW Urine Hemoglobin (NEG) NEG Urine Osmolality (300 - 1000 MOSM/KG) 284 L Ur Random Creatinine (mg/dL) 52.7 Ur Random Sodium (30 - 90 mmol/L) 46 Ur Random Potassium (mmol/L) 24.1 Fraction Sodium Excret (<1% %) 0.4 Urine Glucose (N MG/DL) NEG Assessment and recommendations: 81-year-old female with past medical history significant for hypertension, hyperlipidemia, anxiety, depression, GERD, hypothyroidism who is admitted to orthopedic service for an elective left knee surgery which was performed on . Medicine team is consulted for postoperative delirium. Delirium seems to be resolving. Most likely cause of delirium was narcotic use. Patient admits to having side effects with oxycodone including confused state. Urinalysis looks clean. Patient absolutely denies any respiratory symptoms, no cough or shortness of breath. Her oxygen saturations are perfect on room air. She has had no fevers. She does have some leukocytosis which could be related to postoperative stress. It has been stable though since yesterday. Recommend avoid using oxycodone. Try to control pain with other medications including nonnarcotic such as Tylenol. Patient has taken tramadol in the past without any side effects that can also try that. I agree with resuming her Ativan as well as her citalopram. I would continue to avoid delirium triggers including polypharmacy. Please make sure that on she's not constipated. Her Preciado has been discontinued which could also one of the delirium triggers for elderly patients. Would recommend reorientation during the day and working with physical therapy. Encourage incentive spirometry. DVT px; Eliquis. Thank you for allowing us to participate in the care of this patient, will follow along with you.
[2017-07-18 15:08] VITALS: BP 122/72
[2017-07-18 22:45] VITALS: BP 132/70
[2017-07-19 06:20] VITALS: BP 122/76
--- NOTE | 2017-07-19 08:13 | PN- Medicine Consult ---
Javier Sanchez 07/19/17 0812: Assessment/PlanMedical Consult Assessment/Plan Assessment: This is a 81-year-old female with past medical history significant for cataracts , TIA on statin, hypertension, hypothyroidism, anxiety, depression, GERD, bilateral knee osteoarthritis, status post total knee replacement right knee was admitted to surgical service for elective left total knee replacement on 2017. Medical team was consulted on 07/18/2017 for management of postoperative confusion. Vitals were within normal limits. Pertinent labs leukocytosis 17.7, improved to 12.1. Hemoglobin stable. Platelet count was normal. BMP normal, hyponatremia resolved. Urinalysis showed small esterase, 5-10 WBC, few bacteria. However denies any urinary symptoms. Urine culture no growth so far. Hip xry, knee x-ray with in normal limits showing postoperative changes. Assessment and plan 1. Postoperative delirium Patient was found to have confusion on postoperative day 1 after an elective left total knee replacement. She has pulled her IV line, Preciado's catheter, restraints were ordered. safety monitor was ordered. off note patient received oxycodone and Ativan postoperatively. Postoperative course was complicated by fall from loss of balance. Postoperative delirium Most likely from opiate induced/oxycodone usage, benzodiazepine use. Also given her sleep disturbances she might be delerious. Other most common causes for post operative delirium were ruled out. She was never dehydrated, no trauma, no infection, no fever. * She is alert, awake, oriented 3 today. Delirium seems to be resolved. * Avoid medications like opiates particularly oxycodone given her delirium, benzodiazepine use. * Provide adequate hydration * Avoid sleep disturbances * Environmental modification and nonpharmacologic sleep aids. * Orientation protocol * Decrease use of restraints * No source of infection was found. Urine analysis looks clean. She denies respiratory symptoms. No fever. Leukocytosis resolved. * Sodium improved. No Electrolyte abnormalities. * Continue Tylenol, tramadol for pain management. * Avoid constipation. * Encourage incentive spirometry DVT prophylaxis- Eliqus. Thank you for consulting medical team. Please follow attending recommendations below. Plan: as Problem List: 1. Status post total right knee replacement Subjective Subjective: Patient was seen and examined this morning. She is alert awake and oriented 3 this morning. No overnight events. Patient reports good sleep overnight. Safety monitoring was discontinued. No complaints. She is tolerating Tylenol with good pain control. Review of Systems Constitutional: Reports: see HPI. Objective Last 24 Hrs of Vital Signs/I&O Vital Signs Date Time Temp Pulse Resp B/P B/P Pulse O2 O2 Flow FiO2 Mean Ox Delivery Rate 07/19 0850 73 122/76 07/19 0850 73 122/76 07/19 0850 73 122/76 07/19 0620 98.4 73 18 122/76 94 Room Air 07/19 0000 96 Room Air 07/18 2245 98.3 72 20 132/70 96 Room Air 07/18 1508 98.8 71 20 122/72 93 Intake & Output 07/19 1600 07/19 0800 07/19 0000 Intake Total 100 400 Output Total Balance 100 400 Intake, IV 0 Intake, Oral 100 400 Number 0 Bowel Movements Physical Exam General Appearance: well developed/nourished, no apparent distress, alert, awake , comfortable Head: atraumatic, normal appearance Neck: normal inspection Cardiovascular: regular rate/rhythm Respiratory: normal breath sounds, chest non-tender Abdomen: normal bowel sounds, soft, non-tender Current Medications: Current Medications Sig/Rajesh Start time Last Medication Dose Route Stop Time Status Admin Acetaminophen 500 MG Q4-6 PRN PRN 07/17 1115 AC 07/19 PO 0200 Amlodipine Besylate 10 MG DAILY 07/14 1000 AC 07/19 PO 0850 Apixaban 2.5 MG BID 07/15 2200 AC 07/19 PO 0850 Atenolol 100 MG DAILY 07/15 1000 AC 07/19 PO 0850 Atorvastatin Calcium 10 MG 1700 07/15 1700 AC 07/18 PO 1739 Celecoxib 400 MG DAILY 07/15 1000 AC 07/19 PO 0849 Citalopram 40 MG DAILY 07/15 1000 AC 07/19 Hydrobromide PO 0850 Docusate Sodium 100 MG BID 07/15 2200 AC 07/19 PO 0850 Levothyroxine Sodium 0.025 MG DAILY AC 07/15 0700 AC 07/19 PO 0656 Lisinopril 10 MG DAILY 07/15 1000 AC 07/19 PO 0850 Lorazepam 0.5 MG BID 07/17 1000 AC 07/19 PO 07/24 0959 0849 Omeprazole 20 MG DAILY 07/14 1000 AC 07/19 PO 0656 Ondansetron HCl 4 MG Q6P PRN 07/14 1400 AC IV Polyethylene Glycol 17 GM DAILY PRN 07/16 1000 AC PO Potassium Chloride 10 MEQ DAILY 07/15 1000 AC 07/19 PO 0850 Senna/Docusate Sodium 2 TAB AT BEDTIME NEED.. 07/14 1400 AC PO Tramadol HCl 50 MG Q6P PRN 07/17 1445 AC 07/17 PO 1642 Results Last 24 Hrs Lab/[facility] Results: Laboratory Tests 07/18 07/18 0815 0710 Chemistry Sodium (137 - 145 mmol/L) 136 L Potassium (3.5 - 5.1 mmol/L) 4.0 Chloride (98 - 107 mmol/L) 99 Carbon Dioxide (22 - 30 mmol/L) 27 Anion Gap (5 - 16) 10 BUN (7 - 17 mg/dL) 11 Creatinine (0.5 - 1.0 mg/dL) 0.6 Estimated GFR (>60 ml/min) > 60 BUN/Creatinine Ratio (7 - 25 %) 18.3 Hematology CBC w Diff NO MAN DIFF REQ WBC (4.8 - 10.8 /CUMM) 12.1 H RBC (4.20 - 5.40 /CUMM) 3.02 L Hgb (12.0 - 16.0 G/DL) 9.4 L Hct (37 - 47 %) 27.3 L MCV (81.0 - 99.0 FL) 90.6 MCH (27.0 - 31.0 PG) 31.0 MCHC (33.0 - 37.0 G/DL) 34.3 RDW (11.5 - 14.5 %) 15.2 H Plt Count (130 - 400 /CUMM) 291 MPV (7.4 - 10.4 FL) 8.6 Gran % (42.2 - 75.2 %) 72.0 Lymphocytes % (20.5 - 51.1 %) 16.7 L Monocytes % (1.7 - 9.3 %) 8.6 Eosinophils % (0 - 5 %) 2.5 Basophils % (0.0 - 2.0 %) 0.2 Absolute Granulocytes (1.4 - 6.5 /CUMM) 8.7 H Absolute Lymphocytes (1.2 - 3.4 /CUMM) 2.0 Absolute Monocytes (0.10 - 0.60 /CUMM) 1.0 H Absolute Eosinophils (0.0 - 0.7 /CUMM) 0.3 Absolute Basophils (0.0 - 0.2 /CUMM) 0 Urines Urine Color (YEL,AMB,STR) YEL Urine Clarity (CLEAR) CLEAR Urine pH (5.0 - 8.0) 7.0 Ur Specific Orient (1.001 - 1.035) 1.010 Urine Protein (NEG,<30 MG/DL) NEG Urine Ketones (NEG) NEG Urine Nitrite (NEG) NEG Urine Bilirubin (NEG) NEG Urine Urobilinogen (0.1 - 1.0 EU/dl) 0.2 Ur Leukocyte Esterase (NEG) NEG Ur Microscopic EXAM NOT REQUIRED Urine Hemoglobin (NEG) NEG Urine Glucose (N MG/DL) NEG 07/17 07/17 193 1935 Urines Urine Color (YEL,AMB,STR) YEL Urine Clarity (CLEAR) CLEAR Urine pH (5.0 - 8.0) 7.0 Ur Specific Orient (1.001 - 1.035) 1.010 Urine Protein (NEG,<30 MG/DL) TRACE H Urine Ketones (NEG) NEG Urine Nitrite (NEG) NEG Urine Bilirubin (NEG) NEG Urine Urobilinogen (0.1 - 1.0 EU/dl) 0.2 Ur Leukocyte Esterase (NEG) SMALL H Ur Microscopic SEDIMENT EXAMINED Urine RBC (0 - 5 /HPF) RARE Urine WBC (0 - 2 /HPF) 5-10 H Ur Epithelial Cells (NONE,FEW) MANY H Urine Bacteria (NEG/NONE) FEW H Urine Mucus (FEW,NONE) FEW Urine Hemoglobin (NEG) NEG Urine Osmolality (300 - 1000 MOSM/KG) 284 L Ur Random Creatinine (mg/dL) 52.7 Ur Random Sodium (30 - 90 mmol/L) 46 Ur Random Potassium (mmol/L) 24.1 Fraction Sodium Excret (<1% %) 0.4 Urine Glucose (N MG/DL) NEG Joel STEPHENS,Jennifer 02/20/18 1234: Attending MD Review Statement Attending Sign Off Attending Cosign Statement: I have: examined this patient, reviewed [employer] EMR data, personally reviewd images, discussd w/resident/PA/LICENSE ISSUER, discussed mgmt plan w/lito, discussed mgmt plan w/pt, agreed w/resident/PA/LICENSE ISSUER, amended to note. Other Findings: Patient seen and examined, overall doing much better. Her mental state is back to her baseline. Vital signs are stable. Her pain is well-managed. Medical issues are stable. Postoperative care per surgery. Continue all current management. We'll sign off, please call with questions.
--- NOTE | 2017-07-19 09:38 | PN- Orthopedic ---
Subjective Subjective: Patient feels well. Pain is controlled with Ultram and Tylenol. Confused has resolved off narcotics. Denies c/p, sob, dyspnea. Tolerating a diet, w/o n/v. Eager to go to STR today Objective Vital Signs and I&Os Vital Signs Date Time Temp Pulse Resp B/P B/P Pulse O2 O2 Flow FiO2 Mean Ox Delivery Rate 07/19 0850 73 122/76 07/19 0850 73 122/76 07/19 0850 73 122/76 07/19 0620 98.4 73 18 122/76 94 Room Air 07/19 0000 96 Room Air 07/18 2245 98.3 72 20 132/70 96 Room Air 07/18 1508 98.8 71 20 122/72 93 Intake & Output 07/19 1600 07/19 0800 07/19 0000 07/18 1600 07/18 0800 07/18 0000 Intake Total 100 400 360 500 400 Output Total 600 600 550 Balance 100 400 -240 -100 -150 Intake, IV 0 Intake, Oral 100 400 360 500 400 Number 0 1 Bowel Movements Output, Urine 600 600 550 Physical Exam: Gen - awake an alert in a chair in NAD Cardiac - S1S2 noted, RRR Lungs - CTAB Abd - soft, nontender Ext - Left knee dressing c/d/i, mild edema, incision healing well with no signs of infection, redressed with abd pad, compartment softs, motor and senosry intact, alps in place, no significant edema or calf tenderness B/L Current Medications: Current Medications Sig/Rajesh Start time Last Medication Dose Route Stop Time Status Admin Acetaminophen 500 MG Q4-6 PRN PRN 07/17 1115 AC 07/19 PO 0200 Amlodipine Besylate 10 MG DAILY 07/14 1000 AC 07/19 PO 0850 Apixaban 2.5 MG BID 07/15 2200 AC 07/19 PO 0850 Atenolol 100 MG DAILY 07/15 1000 AC 07/19 PO 0850 Atorvastatin Calcium 10 MG 1700 07/15 1700 AC 07/18 PO 1739 Celecoxib 400 MG DAILY 07/15 1000 AC 07/19 PO 0849 Citalopram 40 MG DAILY 07/15 1000 AC 07/19 Hydrobromide PO 0850 Docusate Sodium 100 MG BID 07/15 2200 AC 07/19 PO 0850 Levothyroxine Sodium 0.025 MG DAILY AC 07/15 0700 AC 07/19 PO 0656 Lisinopril 10 MG DAILY 07/15 1000 AC 07/19 PO 0850 Lorazepam 0.5 MG BID 07/17 1000 AC 07/19 PO 07/24 0959 0849 Omeprazole 20 MG DAILY 07/14 1000 AC 07/19 PO 0656 Ondansetron HCl 4 MG Q6P PRN 07/14 1400 AC IV Polyethylene Glycol 17 GM DAILY PRN 07/16 1000 AC PO Potassium Chloride 10 MEQ DAILY 07/15 1000 AC 07/19 PO 0850 Senna/Docusate Sodium 2 TAB AT BEDTIME NEED.. 07/14 1400 AC PO Tramadol HCl 50 MG Q6P PRN 07/17 1445 AC 07/17 PO 1642 Assessment/Plan Assessment/Plan 81 F POD 5 s/p L TKR, with resolved postop delirium secondary to narcotics. Stable for STR transfer. Cont nonnarcotic pain meds OOB w/ PT, WBAT Reg diet as tolerated Eliquis bid D/c to STR today Will d/w attending Core Measures Venous Thromboembolism VTE Risk Factors Surgery No Mechanical VTE Prophylaxis d/t N/A MechProphylax Ordered No VTE Pharm Prophylaxis d/t NA PharmProphylax ordered
[2017-07-19 11:54] VITALS: BP 122/76
== END 2017-07-19 12:53 | DRG 470 ==
LOC: SDA 01:36 → 2NA 01:36 → EDBEDREQ 11:27 → ENRESERV 12:09 → ENTRNSPT 12:42 → EDTRNSPTSTS 12:59 → EDTRNSPT 12:59 → 2NA 13:16 → CMPTRNSPT 13:18 → 2NA 07-15 10:46 → ENPENDDIS 07-19 09:37 → 2NA 07-19 12:53
PROVIDERS: Physician Assistant; Physician Assistant Surgical
PROC: 0SRD0J9 Replacement of Left Knee Joint with Synthetic Substitute, Cemented, Open Approach (ICD-10-PCS; principal; 2017-07-14)
PROC: 3E0T3BZ Introduction of Anesthetic Agent into Peripheral Nerves and Plexi, Percutaneous Approach (ICD-10-PCS; principal; 2017-07-14)
DX: M17.12 Unilateral primary osteoarthritis, left knee (principal); F05 Delirium due to known physiological condition; T40.2X5A Adverse effect of other opioids, initial encounter; F41.9 Anxiety disorder, unspecified; E03.9 Hypothyroidism, unspecified; E78.5 Hyperlipidemia, unspecified; K21.9 Gastro-esophageal reflux disease without esophagitis; I10 Essential (primary) hypertension; F32.9 Major depressive disorder, single episode, unspecified; Z86.73 Personal history of transient ischemic attack (TIA), and cerebral infarction without residual deficits; Z79.82 Long term (current) use of aspirin; Z88.5 Allergy status to narcotic agent; H26.9 Unspecified cataract; Z96.651 Presence of right artificial knee joint; W18.30XA Fall on same level, unspecified, initial encounter; Y92.239 Unspecified place in hospital as the place of occurrence of the external cause
CPT/HCPCS: 2NASP; 84133; 84300; 36415; 36592; 73502-LT; 73560-LT; 81001; 81003; 82436; 82570; 87086; 97110-GO; 97116-GO; 97161-GP; 97530-GO; C1713; J0131; J1100; J2405; J2795; J3370; J7040; J7060